=== PATIENT | female | born 1940 | race Caucasian/White ===

== ENCOUNTER 2018-09-04 09:26 | Inpatient (IN) | payer MEDICARE, BC | END 2018-09-07 13:10 | LOC: PAS IN 09:26 → ORTHO 4S 14:15 | PROC: 0SRD0J9 Replacement of Left Knee Joint with Synthetic Substitute, Cemented, Open Approach (ICD-10-PCS; principal; 2018-09-04 10:22) | DX: M17.11 Unilateral primary osteoarthritis, right knee (principal) ==